=== PATIENT | male | born 1970 | race Caucasian/White ===

== ENCOUNTER 2018-04-28 05:41 | Emergency (ER) | payer OTHER ==
--- NOTE | 2018-04-28 05:48 | ED Physician Documentation ---
PD HPI OPHTHO - Stated complaint Stated Complaint: R/L EYE PAIN - History obtained from History obtained from: Patient - History of Present Illness Timing - onset: Today, Yesterday Timing - details: Abrupt onset, Still present Location: Both (right is worse) Quality / character: Burning, Aching Associated symptoms: Redness, Swelling, Tearing, Photophobia (mild). No: Matting, FB sensation, Decreased vision Contributing factors: Recent URI (has had some nasal congestion and sore throat the past week, improving.). No: Exposed to conjunctivitis, UV light (welding etc), Chemical exposure, acid, Chemical exposure, base, Wears contacts Similar symptoms before: Has not had sx before Recently seen: Not recently seen Review of Systems Constitutional: denies: Fever, Chills, Myalgias Eyes: reports: Decreased vision, Photophobia, Discharge (some matting this morning. No purulence per se.), Irritation. denies: Loss of vision Ears: denies: Ear pain Nose: reports: Congestion, Sinus pressure / pain. denies: Rhinorrhea / runny nose Throat: reports: Sore throat Respiratory: denies: Dyspnea, Cough GI: denies: Nausea, Vomiting Skin: denies: Rash, Lesions PD PAST MEDICAL HISTORY - Past Medical History Cardiovascular: None Respiratory: None Neuro: None Endocrine/Autoimmune: None - Present Medications Home Medications: Ambulatory Orders Medication Instructions Recorded Confirmed Cetirizine [ZyrTEC] 10 mg PO DAILY #15 tablet 04/28/18 Flurbiprofen Sodium 1 drops EACHEYE QID #1 bottle 04/28/18 Ketotifen Fumarate 2 drops EACHEYE QID #1 bottle 04/28/18 - Allergies Allergies/Adverse Reactions: Allergies Allergy/AdvReac Type Severity Reaction Status Date / Time Iodinated Contrast- Oral and Allergy Unknown Verified 04/28/18 05:56 IV Dye PD ED PE NORMAL - Vitals Vital signs reviewed: Yes - General General: Alert and oriented X 3, No acute distress, Well developed/nourished - HEENT HEENT: PERRL, EOMI, Ears normal, Moist mucous membranes, Pharynx benign, Other (bilateral conjunctival redness, right more, with injection and redness. increased watering. No purulence per se. Anterior and posterior chambers are clear. FUndi are normal. No fluerescein uptake. ICare pressure right eye is 12. ) - Neck Neck: Supple, no meningeal sign, No adenopathy - Cardiac Cardiac: RRR, No murmur - Respiratory Respiratory: Clear bilaterally - Abdomen Abdomen: Soft, Non tender Results - Vitals Vitals: Vital Signs - 24 hr 04/28/18 05:50 Temperature 36.7 C Heart Rate 110 H Respiratory 17 Rate Blood Pressure 191/107 H O2 Saturation 97 Oxygen O2 Source Room air PD MEDICAL DECISION MAKING - ED course Complexity details: considered differential (Most likely viral conjunctivitis given both eyes irritated. There is no obvious exposures for allergy or contact dermatitis correction conjunctivitis. Will treat for possible bacterial as well the mainly the anti-inflammatory and antihistamine eyedrops for symptoms.), d/w patient Departure - Departure Disposition: Home, Self Care Clinical Impression: Acute conjunctivitis, bilateral Qualifiers: Acute conjunctivitis type: viral Qualified Code(s): B30.9 - Viral conjunctivitis, unspecified Condition: Stable Record reviewed to determine appropriate education?: Yes Instructions: ED Conjunctivitis Nonspecific Follow-Up: JACINTO COY [Primary Care Provider] - Prescriptions: Cetirizine [ZyrTEC] 10 mg PO DAILY #15 tablet Flurbiprofen Sodium 1 drops EACHEYE QID #1 bottle Ketotifen Fumarate 2 drops EACHEYE QID #1 bottle Comments: Use the antibiotic, antihistamine and anti-inflammatory eyedrops 4 times a day for the next several days. Use cetirizine antihistamine daily for the next week or so. This commonly is a viral illness and has inflammation of the eyes for a few days and then improves. We will treated with antibiotics as well just because of potential bacterial conjunctivitis instead and can be hard to distinguish. Recheck if not improved over the next 2-3 days. You can use the numbing drops periodically if needed for discomfort but be wearing not to be out in an exposed winter dust and to not use them beyond 2-3 days without rechecking. Forms: Activity restrictions
[2018-04-28] MEDS ORDERED: PROPARACAINE 0.5% OPHTH DROPS 15 ML EACHEYE STA (05:49)
[2018-04-28] MEDS ORDERED: SULFACETAMIDE 10% OPHTH DROPS EACHEYE STA (06:17)
[2018-04-28] MEDS ORDERED: prednisoLONE 1% OPHTH DROPS 75 DROPS/5 ML BOTTLE EACHEYE STA (06:17)
[2018-04-28] MEDS ORDERED: CETIRIZINE 10 MG TABLET PO STA (06:18)
[2018-04-28 06:35] VITALS: BP 164/103
== END 2018-04-28 06:48 | disposition home or self-care (01) ==
LOC: ED 05:41
DX: B30.9 Viral conjunctivitis, unspecified (principal)
CPT/HCPCS: 99283; A9270; J3490

== ENCOUNTER 2018-04-30 04:36 | Emergency (ER) | payer OTHER ==
[2018-04-30 04:47] VITALS: BP 172/95
[2018-04-30] MEDS ORDERED: PROPARACAINE 0.5% OPHTH DROPS 15 ML EACHEYE STA (04:51)
--- NOTE | 2018-04-30 05:09 | ED Physician Documentation ---
PD HPI OPHTHO - Stated complaint Stated Complaint: KIRSTIE CONJUNCTIVITIS - Chief complaint Chief Complaint: Heent - History obtained from History obtained from: Patient, Family - History of Present Illness Timing - onset: How many days ago (3) Timing - duration: Days (3) Timing - details: Gradual onset Pain level max: 6 Pain level now: 5 Location: Both Quality / character: Burning, Aching Associated symptoms: Redness, Tearing, Photophobia. No: FB sensation Contributing factors: Recent URI, Wears glasses. No: Exposed to conjunctivitis, UV light (welding etc), Chemical exposure, acid, Chemical exposure, base, Blunt trauma, Penetrating trauma, Irrigated FR[employer], Wears contacts, Work related Similar symptoms before: Diagnosis (conjunctivitis) Recently seen: Emergency Dept (2 days ago for same) - Additional information Additional information: 47-year-old male with a recent viral URI. Seen here and placed on ketotifen, ketorolac eyedrops, proparacaine and sulfacetamide eyedrops. States he is worsening. Does not use contacts or any other drops in his eyes. No welding. No chemical exposures. Works in computers. Also complaining of pain and swelling to the left lower jaw. Review of Systems Constitutional: denies: Fever, Chills Eyes: reports: Photophobia, Discharge (clear), Irritation Ears: denies: Ear pain Nose: denies: Rhinorrhea / runny nose, Congestion GI: denies: Vomiting, Diarrhea Skin: denies: Rash Musculoskeletal: denies: Neck pain, Back pain Neurologic: denies: Headache PD PAST MEDICAL HISTORY - Past Medical History Cardiovascular: None Respiratory: None Neuro: None Endocrine/Autoimmune: None Musculoskeletal: Other - Past Surgical History Past Surgical History: Yes Ortho: Knee replacement - Present Medications Home Medications: Ambulatory Orders Medication Instructions Recorded Confirmed Cetirizine [ZyrTEC] 10 mg PO DAILY #15 tablet 04/28/18 04/30/18 Ketotifen Fumarate 2 drops EACHEYE QID #1 bottle 04/28/18 04/30/18 Ketorolac 0.45% Ophth Drops 1 drops EACHEYE Q4HR 04/30/18 04/30/18 [Acuvail] Penicillin V Potassium 500 mg PO Q6HR #40 tablet 04/30/18 Polymyxin B/Trimeth Ophth Drop 1 drops EACHEYE Q3H 7 Days #1 04/30/18 [Polytrim Ophth Drops] bottle Proparacaine 0.5% Ophth Drops 1 drops EACHEYE DAILY PRN 04/30/18 04/30/18 [Alcaine 0.5% Ophth Drops] Sulfacetamide 10% Ophth Drops 1 drops EACHEYE Q4HR 04/30/18 04/30/18 [Sulfamide 10% Ophth Drops] - Allergies Allergies/Adverse Reactions: Allergies Allergy/AdvReac Type Severity Reaction Status Date / Time Iodinated Contrast- Oral and Allergy Unknown Verified 04/30/18 04:47 IV Dye - Social History Does the pt smoke?: Yes Smoking Status: Current every day smoker Does the pt drink ETOH?: No Does the pt have substance abuse?: No - Immunizations Immunizations are current?: Yes - POLST Patient has POLST: No PD ED PE NORMAL - Vitals Vital signs reviewed: Yes - General General: Alert and oriented X 3, No acute distress - HEENT HEENT: Moist mucous membranes, Dentition benign (Mild swelling to the left lower mandible, mild tenderness as well. No facial cellulitis. Tender to palpation over the accompanying tooth), Other (Bilateral conjunctivae are very injected. Clear drainage. Positive photophobia. Ocular pressures are normal, os is 12, OD is 11. Negative fluorescein stain bilaterally.) - Neck Neck: Supple, no meningeal sign - Cardiac Cardiac: RRR, Strong equal pulses - Respiratory Respiratory: No respiratory distress, Clear bilaterally - Derm Derm: Warm and dry - Neuro Neuro: Alert and oriented X 3 Results - Vitals Vitals: Vital Signs - 24 hr 04/30/18 04:40 Temperature 36.5 C Heart Rate 102 H Respiratory 18 Rate Blood Pressure 172/95 H O2 Saturation 98 Oxygen O2 Source Room air PD MEDICAL DECISION MAKING - ED course Complexity details: considered differential, d/w patient ED course: 47-year-old male with 2 issues, the first is dental caries with a very small gingival early abscess that is not yet drainable. Will place on penicillin for this. The second is bilateral conjunctivitis, unclear etiology, but likely viral. Will stop the ketorolac eyedrops as well as the proparacaine at home. We will change him from sulfacetamide the Polytrim in case he is having a sulfa reaction. Can use the ketotifen as needed. We will have him follow-up with ophthalmology tomorrow. No corneal ulcers. Patient counseled regarding signs and symptoms for which I believe and urgent re-evaluation would be necessary. Patient with good understanding of and agreement to plan and is comfortable going home at this time This document was made in part using voice recognition software. While efforts are made to proofread this document, sound alike and grammatical errors may occur. Departure - Departure Disposition: 01 Home, Self Care Clinical Impression: Dental infection Acute conjunctivitis, bilateral Qualifiers: Acute conjunctivitis type: unspecified Qualified Code(s): H10.33 - Unspecified acute conjunctivitis, bilateral Condition: Good Instructions: ED Tooth Pain, ED Abscess Tooth Follow-Up: Van Borjas MD [Provider Admit Priv/Credential] - 05/01/18 JACINTO COY [Primary Care Provider] - Within 3 Days Prescriptions: Penicillin V Potassium 500 mg PO Q6HR #40 tablet Polymyxin B/Trimeth Ophth Drop [Polytrim Ophth Drops] 1 drops EACHEYE Q3H 7 Days #1 bottle Comments: Stop the proparacaine eye drops. Stop the ketorolac eye drops. Stop the sulfacetamide. We will change you to polytrim ophthalmic. It is important that you are seen by ophthalmology tomorrow. Call first thing in the morning for an appointment. Ice compresses may feel better on your eyes as well. Return if you worsen. You also need to see a dentist about your lower left tooth. Take all antibiotics until gone. Discharge Date/Time: 04/30/18 05:18
== END 2018-04-30 05:18 | disposition home or self-care (01) ==
LOC: ED 04:36
DX: H10.33 Unspecified acute conjunctivitis, bilateral (principal); K05.219 Aggressive periodontitis, localized, unspecified severity; K02.9 Dental caries, unspecified; F17.200 Nicotine dependence, unspecified, uncomplicated
CPT/HCPCS: 99283; J3490